=== PATIENT | female | born 2005 | race Two or more races ===

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

== ENCOUNTER 2023-09-15 12:58 | Emergency (ER) | payer MEDICAID, OTHER ==
[~2023-09-15] VITALS: Ht 162.6 cm; Wt 85.2 kg
[2023-09-15 14:24] VITALS: BP 126/68; PULSE 108; RESP 16; O2SAT 97
[2023-09-15] MEDS ORDERED: IBUP-1456 PO (16:07)
[2023-09-15] MEDS ORDERED: METH-1182 PO (16:07)
== END 2023-09-15 16:16 | disposition home or self-care (01) ==
LOC: ER 12:58
DX: S39.012A Strain of muscle, fascia and tendon of lower back, initial encounter (principal); S46.911A Strain of unspecified muscle, fascia and tendon at shoulder and upper arm level, right arm, initial encounter; Z79.1 Long term (current) use of non-steroidal anti-inflammatories (NSAID); Z79.899 Other long term (current) drug therapy; V49.9XXA Car occupant (driver) (passenger) injured in unspecified traffic accident, initial encounter; Y93.89 Activity, other specified; Y92.410 Unspecified street and highway as the place of occurrence of the external cause; Y99.8 Other external cause status
CPT/HCPCS: 72070